=== PATIENT | female | born 1995 | race Caucasian/White ===

== ENCOUNTER 2017-12-07 11:04 | Emergency (ER) | payer MEDICAID ==
[~2017-12-07] VITALS: Ht 162.6 cm; Wt 72.4 kg
[~2017-12-07 11:04] MED LIST: [UNRECOGNIZED DRUG - OTHER] PO
[2017-12-07 11:14] VITALS: BP 118/65
== END 2017-12-07 12:08 | disposition home or self-care (01) ==
LOC: ED 11:49
DX: H60.502 Unspecified acute noninfective otitis externa, left ear (principal); F32.9 Major depressive disorder, single episode, unspecified
CPT/HCPCS: 99283